=== PATIENT | male | born 1960 | race Caucasian/White ===

== ENCOUNTER 2016-10-09 19:25 | Observation (INO) ==
--- NOTE | 2016-10-09 19:53 | CT Report ---
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 PROCEDURE INTERPRETED AT [facility] DEPARTMENT OF RADIOLOGY Final Report Signed by: Dr. Alondra Valderrama
[2016-10-09] MEDS ORDERED: SODIUM CHLORIDE 0.9% 500 ML IV STA ×2 (20:07→22:24)
[2016-10-09 21:40] LABS: Basophils % 0.2 % (0.0-0.8); Eosinophils % 0.1 % (0.00-10.9); Hematocrit 41.9 VOL% (42.0-52.0); Hemoglobin 14.5 GM/DL (14.0-18.0); Immature Granulocytes % 0.6 %; Immature Granulocytes Absolute 0.05 #; Lymphocytes # 0.4 10*3/uL (1.4-4.0); Lymphocytes % 4.6 % (21.2-54.2); Mean Corpuscular HGB Conc 34.6 GM/DL (32-36); Mean Corpuscular Hemoglobin 31 PG (27-34); Mean Corpuscular Volume 89.7 FL (87-102); Mean Platelet Volume 10.6 FL (9.6-12.0); Monocytes # 0.6 10*3/uL (0.11-0.8); Monocytes % 6.5 % (1.7-12.7); Neutrophils # 7.7 10*3/uL (1.4-7.4); Platelet Count 187 T/CUMM (130-400); Red Blood Count 4.67 MC/CUMM (3.8-5.5); Red Cell Distribution Width 13.3 % (9.3-17.3); White Blood Count 8.8 T/CUMM (4-12)
[2016-10-09 21:47] LABS: Magnesium 1.8 MG/DL (1.8-2.4); Osmolality,Calculated 285.3 MOS/KG (273-304); Potassium 4.5 MMOL/L (3.5-5.1)
[2016-10-09 22:17] LABS: Band Neutrophils 4 % (0-10); Lymphocytes 7 % (20-55); Platelet Estimate Decreased; Segmented Neutrophils 88 % (50-85); Total Cells Counted 100
--- NOTE | 2016-10-09 22:27 | Emergency Department Note ---
Garrett Reaves Brittany, am scribing for, and in the presence of, Valentino Guzmán M.D. 20:17. Arielle Reaves Howard T, M.D., personally performed the services described in this documentation, ascribed by Zofia Tucker in my presence, and it is both accurate and complete . Arrival - Arrival Chief Complaint: Weakness ED Nursing Triage Note: PT ARRIVES VIA EMS. EMS ACTIVATED STROKE ALERT AT 1832. UPON ARRIVAL PT IS NOTED TO HAVE IMPROVEMENT PER REPORT GIVEN. EMS STATES THAT PT WAS HAVING N/V/D TODAY AND DROVE TO ER AT [facility] AND WAS FOUND IN TRUCK WITH NO USE OF LEFT SIDE NOTED. PT STATES THAT HE HAS HAD A CVA IN JULY OF THIS YEAR. LEFT SIDED WEAKNESS IS NOTED AT TIME OF TRIAGE. NO FACIAL DROOP OR SLURRED SPEECH. WEAKNESS IN NOTED IN BOTH UPPER AND LOWER EXT. Mode of Arrival: Stretcher Limitations: No Limitations Source: Patient, Significant other, RN Notes Reviewed - History of Present Illness HPI Narrative: Patient is a 56 y/o white male presenting to the ED by EMS with c/o weakness with an onset of 1800 today. reports that patient had left home around 1630 to run to town to get a Gatorade to replace lost electrolytes s/p episode of nausea, vomiting, and diarrhea this morning. She states at around 1800 she was called by an employee at their store and told that patient was not acting himself, was stumbling, and dropped his Gatorade. She then reports that she then found patient asleep hanging out of his truck with the door open and truck still running. then notes that she asked patient was he was doing and he then responded, "I'm sleeping," but speech was very slurred. She then noticed patient's eyes did not appear normal, that something was going on with the left side. She then called EMS. Patient then stumbled out of his truck, yawning , and fell asleep again on his 's shoulder. reports that EMS reported to her that patient very much improved. Patient has a history of CVA July 2016 that affected the left side, patient was left with residual difficulty with processing thoughts. Patient has a history of Aneurysm as well. He is a patient of Dr. Berg. No other complaint/pain in the ED. Onset (ago): hour(s) (2) Consistency: now resolved Severity: moderate Severity scale (1-10): 6 Allergies/Adverse Reactions: Allergies Allergy/AdvReac Type Severity Reaction Status Date / Time No Known Allergies Allergy Unverified 10/09/16 19:36 Review of System - Review of System 12 point system: reviewed and no additional remarkable complaints except as stated - Review of System Constitutional: Present: weakness Gastrointestinal: Present: nausea, vomiting, diarrhea Neurological: Present: as per HPI, weakness, confusion Medical,Surgical,& Family Hx - Medical History Neurology: History of: Cerebrovascular Accident - Social History Smoking Status: Never smoker Frequency of Alcohol Use: Occasionally Type of Drug Use: None Exam Vital Signs: Vital Signs Temperature 98.0 F 10/09/16 19:25 Pulse Rate 90 10/09/16 19:25 Respiratory Rate 18 10/09/16 19:25 Blood Pressure 108/62 10/09/16 19:25 O2 Sat by Pulse Oximetry 95 10/09/16 19:25 - General General appearance: alert, in no apparent distress - Head Head exam: Present: atraumatic, normocephalic, normal inspection - Eye Eye exam: Present: normal appearance, PERRL, EOMI - ENT ENT exam: Present: normal exam, normal oropharynx - Neck Neck exam: Present: normal inspection, full ROM, trachea midline - Chest Chest inspection: Present: normal inspection, symmetric chest wall rise - Respiratory Respiratory exam: Present: normal lung sounds bilaterally. Absent: rales, rhonchi, wheezes - Cardiovascular Cardiovascular exam: Present: regular rate, normal rhythm, normal heart sounds. Absent: murmur, rubs, gallop - Abdominal Exam Abdominal exam: Present: soft, normal bowel sounds. Absent: distention, tenderness - Extremities Exam Extremities exam: Present: normal inspection - Back Exam Back exam: Present: normal inspection - Neurological Exam Neurological exam: Present: alert, oriented X3, CN II-XII intact, other ( patient is symmetric, no neurological deficits noted). Absent: motor sensory deficit - Psychiatric Psychiatric exam: Present: normal affect - Skin Skin exam: Present: warm, dry Course Course Narrative: Medical decision making: History and exam suggests mild dehydration, IV fluids and process. His history suggests possible TIA with resolution of symptoms however he does have history of CVA and so was discussed with hospitalist for evaluation probable overnight admission perhaps to see Dr. Berg again in the morning. Results - Labs CBC & BMP: 10/09/16 21:08 10/09/16 21:08 Lab Results: I have reviewed the patients labs Labs: Laboratory Tests 10/09/16 21:08 WBC 8.8 RBC 4.67 Hgb 14.5 Hct 41.9 L MCV 89.7 MCH 31 MCHC 34.6 RDW 13.3 Plt Count 187 MPV 10.6 Neut % (Auto) 88.0 H Lymph % (Auto) 4.6 L [place] % (Auto) 6.5 Eos % (Auto) 0.1 Baso % (Auto) 0.2 Neut # (Auto) 7.7 H Lymph # (Auto) 0.4 L [place] # (Auto) 0.6 Eos # (Auto) 0.0 Baso # (Auto) 0.0 Immature Gran % 0.6 Nucleated RBC % 0.0 Immature Gran # 0.05 Nucleated RBCs # 0.00 Laboratory Tests 10/09/16 21:08 Sodium 141 Potassium 4.5 Chloride 107 Carbon Dioxide 23 Anion Gap 15.5 H BUN 27 H Creatinine 1.50 H GFR Calculation 55 BUN/Creatinine Ratio 18.00 Glucose 106 Calculated Osmolality 285.3 Calcium 8.0 L Magnesium 1.8 Laboratory Tests 10/09/16 21:08 Total Counted 100 Immature Gran % 0.6 Nucleated RBC % 0.0 Immature Gran # 0.05 Segmented Neutrophils 88 H Band Neutrophils 4 Lymphocytes 7 L Monocytes 1 L Nucleated RBCs # 0.00 Platelet Estimate Decreased Pappenheimer Bodies - Diagnostic Findings Procedure: CT: report reviewed by me (CT head: Chronic cortical infarct in the right posterior parietal lobe.) Disposition Clinical Impression: Dehydration, Viral gastroenteritis, TIA (transient ischemic attack) Case discussed with: patient, patient's family Disposition: Disch/Xfer-[facility] Hos Condition: Stable Time of Disposition: 22:27
--- NOTE | 2016-10-09 23:08 | Hospitalist History & Physical ---
Assessment and Plan (1) Alcoholism Status: Acute Current Visit: Yes (2) Dehydration Status: Acute Current Visit: Yes (3) Viral gastroenteritis Status: Acute Current Visit: Yes (4) TIA (transient ischemic attack) Status: Acute Assessment and plan: Plan for this patient will be admitted to a monitored bed. Get MRI. Consult Dr. Berg. Continue home meds as appropriate. Provide alcohol 12 ounce beer every 8 hours. Current Visit: Yes History of Present Illness Chief complaint: Altered mental status History of present illness: Mr. Lopez is a 56 year old male with past medical history significant for stroke, hypertension, aneurysm, increased cholesterol and gout who was in his normal state of health until today. His reports that he had been complaining about nausea vomiting diarrhea. He left home around 1630 running to get a Gatorade. At 6 PM she was called by the employee at their store until the patient was not acting like himself. He was stumbling and dropping the Gatorade. She went to go check on him at the store and found him hanging residential out of his truck with it running. She asked him what he was doing there and he said I am sleeping. She says speech was slurred. She said he had a disconjugate gaze. She wanted to bring up to the hospital but he refused. They called EMS and they arrived at the store. Patient had left-sided weakness. This has since resolved. He is a patient of Dr. Berg. Came to our hospital for further evaluation I was consulted to admit him Allergies Allergy/AdvReac Type Severity Reaction Status Date / Time No Known Allergies Allergy Unverified 10/09/16 19:36 Medical,Surgical,& Family Hx - Medical History Neurology: History of: Cerebrovascular Accident - Surgical History Orthopedic Surgeries: Surgical HX of;: Orthopedic Surgery - Family History Family History: Reports;: Family Cancer, Family Heart Disease, Family Hypertension - Social History Smoking Status: Never smoker Frequency of Alcohol Use: Frequently Type of Drug Use: None 12 point system: reviewed and no additional remarkable complaints except as stated Exam - Constitutional Vitals: Period Temp Pulse Resp BP Sys/Olmos Pulse Ox Last 24 Hr 98.0 F-98.0 F 90-90 18-18 108-108/62-62 95 General appearance: normal weight, no acute distress, other (Patient was asleep when I examined him but would wake up easily and talk to me without slurred speech) - Head Head exam: Present: normal inspection - Eye Eye exam: Present: EOMI Pupils: Present: KATHARINA - ENT ENT exam: Present: normal exam - Neck Neck exam: Present: normal inspection - Respiratory Respiratory exam: Present: clear to auscultation bilaterally - Cardiovascular Cardiovascular exam: Present: regular rate and rhythm - GI/Abdominal GI/Abdominal exam: Present: normal bowel sounds - Extremities Exam Extremities exam: Present: normal inspection - Back Exam Back exam: Present: normal inspection - Neurological Exam Neurological exam: Present: alert, other (No focal deficits appreciated patient has a facial droop on the left reports this is new) - Psychiatric Psychiatric exam: Present: normal affect - Skin Skin exam: Present: normal color Results - Labs CBC & BMP: 10/09/16 21:08 10/09/16 21:08
[2016-10-09] MEDS ORDERED: LABETALOL 20 MG/4 ML SYRINGE IV PRN (23:13)
[2016-10-09] MEDS ORDERED: ACETAMINOPHEN 325 MG TABLET PO PRN (23:13)
[2016-10-09] MEDS ORDERED: ONDANSETRON 4 MG/2 ML VIAL IV PRN (23:13)
[2016-10-10] MEDS ORDERED: SODIUM CHLORIDE 0.9% 1,000 ML IV SCH (00:30)
[2016-10-10] MEDS ORDERED: INFLUENZA VIRUS VACCINE 0.5 ML SYRINGE IM ONE (01:12)
[2016-10-10 04:54] LABS: Basophils % 0.2 % (0.0-0.8); Eosinophils # 0.1 10*3/uL (0.0-0.87); Eosinophils % 1.1 % (0.00-10.9); Hematocrit 40.8 VOL% (42.0-52.0); Hemoglobin 13.7 GM/DL (14.0-18.0); Immature Granulocytes % 0.5 %; Immature Granulocytes Absolute 0.03 #; Lymphocytes # 0.9 10*3/uL (1.4-4.0); Lymphocytes % 14.9 % (21.2-54.2); Mean Corpuscular HGB Conc 33.6 GM/DL (32-36); Mean Corpuscular Hemoglobin 31 PG (27-34); Mean Corpuscular Volume 91.3 FL (87-102); Mean Platelet Volume 10.1 FL (9.6-12.0); Monocytes # 0.6 10*3/uL (0.11-0.8); Monocytes % 9.7 % (1.7-12.7); Neutrophils # 4.6 10*3/uL (1.4-7.4); Neutrophils % 73.6 % (38.7-73.9); Platelet Count 170 T/CUMM (130-400); Red Blood Count 4.47 MC/CUMM (3.8-5.5); Red Cell Distribution Width 13.4 % (9.3-17.3); White Blood Count 6.3 T/CUMM (4-12)
[2016-10-10 05:22] LABS: Magnesium 1.9 MG/DL (1.8-2.4); Osmolality,Calculated 291.7 MOS/KG (273-304); Potassium 4.5 MMOL/L (3.5-5.1)
[2016-10-10 08:05] LABS: Risk Ratio 1.77; VLDL CHOLESTEROL 11.2 MG/DL
[2016-10-10] MEDS ORDERED: CARVEDILOL 3.125 MG TABLET PO SCH (09:00)
[2016-10-10] MEDS ORDERED: FOLIC ACID 1 MG TABLET PO SCH (09:00)
[2016-10-10] MEDS ORDERED: THIAMINE 100 MG TABLET PO SCH (09:00)
[2016-10-10] MEDS ORDERED: ENOXAPARIN 40 MG/0.4 ML SYRINGE SUBCUT SCH (09:00)
[2016-10-10] MEDS ORDERED: ALLOPURINOL 100 MG TABLET PO SCH (09:00)
[2016-10-10] MEDS ORDERED: COLCHICINE 0.6 MG TABLET PO SCH (09:00)
[2016-10-10] MEDS ORDERED: MULTIVITAMIN (CENTRUM) TABLET PO SCH (09:00)
--- NOTE | 2016-10-10 09:46 | Discharge Summary ---
Hospital Course - Hospital Course Hospital Course: Mr. Lopez is a 56 year old male with past medical history significant for stroke, hypertension, aneurysm, increased cholesterol and gout who was in his normal state of health until today. His reports that he had been complaining about nausea vomiting diarrhea. He left home around 1630 running to get a Gatorade. At 6 PM she was called by the employee at their store until the patient was not acting like himself. He was stumbling and dropping the Gatorade. She went to go check on him at the store and found him hanging half-way out of his truck with it running. She asked him what he was doing there and he said I am sleeping. She says speech was slurred. She said he had a disconjugate gaze. She wanted to bring up to the hospital but he refused. They called EMS and they arrived at the store. Patient had left-sided weakness. This has since resolved. He is a patient of Dr. Berg. Patient was admitted to observation for stroke-like symptoms. His neurological deficits including weakness and slurred speech have resolved completely. His symptoms were better upon arrival to the emergency department prior to his admission. The patient was found to be acutely dehydrated with acute kidney injury and a creatinine of 1.8 likely related to his nausea vomiting and diarrhea with a bout of viral gastroenteritis. With IV fluid hydration, the patient's symptoms have completely resolved within 24 hours. He is being discharged home to follow-up as an outpatient with his primary care physician and his neurologist. - Time spent with patient Time with patient DS: Greater than 30 minutes (Total discharge time for this patient, including effx-ju-tire time, clinical documentation, medication reconciliation, and discharge planning was 37 minutes.) Diagnosis - Discharge Diagnosis (1) Dehydration Status: Resolved (2) TIA (transient ischemic attack) Status: Resolved (3) Viral gastroenteritis Status: Resolved (4) VADIM (acute kidney injury) Status: Resolved (5) HTN (hypertension) Status: Chronic Discharge Plan - Discharge Data Disposition: Disch To Home/Self Care Condition at Discharge: Stable Discharge Diet: advance to your usual diet Activity: resume usual activities as tolerated Hygiene: no restrictions - Discharge Medications New Multivitamin (Centrum) [Centrum Tab] 1 tablet PO DAILY tablet Continue Allopurinol [Zyloprim] 100 mg PO BID Colchicine 0.6 mg PO BID Aspirin [Ecotrin] 81 mg PO BEDTIME Atorvastatin [Lipitor] 10 mg PO BEDTIME Carvedilol [Coreg] 3.125 mg PO BID - Follow Up or Referral - Forms/Instructions Exam - Constitutional Vitals: Period Temp Pulse Resp BP Sys/Olmos Pulse Ox Last 24 Hr 97.6 F-98.0 F 52-74 18-20 104-124/55-74 93-97 General appearance: no acute distress Exam: Constitutional System: No distress. No tremulousness. Head: Normocephalic, atraumatic. Ears, Nose and Throat System: No pain or tenderness. No epistaxis or discharge Eyes System: Pupils equal, round, and reactive. Extraocular muscles intact. Neck: Supple, without adenopathy, No jugular venous distention. No thyromegaly, neck mass, or prior surgery apparent. Respiratory System: Chest clear to auscultation. Cardiovascular System: Heart with regular rate and rhythm. No murmur. GI System: Abdomen soft, nontender. Normo active bowel sounds present. Musculoskeletal System: limbs with no pedal edema. Full distal pulses. Neurological System: No discernable sensory deficit. No aphasia Psychiatric System: Conversation is rational Discharge Results Procedures and tests throughout hospitalization: Pending Orders 10/10/16 07:35 Drug Screen, Urine Stat Urinalysis Stat Labs on day of discharge: Labs from last 24 hours 10/10/16 10/10/16 10/10/16 04:22 04:22 04:22 WBC 6.3 RBC 4.47 Hgb 13.7 L Hct 40.8 L MCV 91.3 MCH 31 MCHC 33.6 RDW 13.4 Plt Count 170 MPV 10.1 Neut % (Auto) 73.6 Lymph % (Auto) 14.9 L [place] % (Auto) 9.7 Eos % (Auto) 1.1 Baso % (Auto) 0.2 Neut # (Auto) 4.6 Lymph # (Auto) 0.9 L [place] # (Auto) 0.6 Eos # (Auto) 0.1 Baso # (Auto) 0.0 Immature Gran % 0.5 Nucleated RBC % 0.0 Immature Gran # 0.03 Nucleated RBCs # 0.00 Sodium 145 Potassium 4.5 Chloride 108 H Carbon Dioxide 26 Anion Gap 15.5 H BUN 23 H Creatinine 1.30 GFR Calculation 66 BUN/Creatinine Ratio 17.00 Glucose 100 Calculated Osmolality 291.7 Calcium 8.0 L Magnesium 1.9 Triglycerides 56 Cholesterol 138 LDL Cholesterol 49.0 VLDL Cholesterol 11.2 HDL Cholesterol 78 H Heart Disease Risk Ratio 1.77 DS: Provider Date of admission: 10/09/16 23:13 Primary care physician: . No PCP Attending physician on admission: Karley Bean MD Discharging clinician: Karley Bean MD Expected date of discharge: 10/10/16
[2016-10-10 11:42] VITALS: BP 119/76
[2016-10-10] MEDS ORDERED: ATORVASTATIN 10 MG TABLET PO SCH (21:00)
[2016-10-10] MEDS ORDERED: ASPIRIN EC 81 MG TABLET PO SCH (21:00)
== END 2016-10-10 11:56 | disposition home or self-care (01) ==
LOC: N.ED 19:25 → N.EDINP 19:25 → N.TELES 10-10 00:24
PROVIDERS: ADMIT Family Medicine; ATTEND Family Medicine